=== PATIENT | female | born 1940 | race Caucasian/White ===

== ENCOUNTER 2025-06-26 20:16 | Inpatient (IN) | payer OTHER, SELFPAY ==
[2025-06-26 15:22] VITALS: BP 143/71
[2025-06-26 16:03] LABS: Hematocrit 43.6 % (37.0-47.0); Hemoglobin 14.4 g/dL (12.0-16.0); Mean Corp Hgb Conc. 33.0 g/dL (33.0-37.0); Mean Corpuscular Volume 85.8 fL (81.0-99.0); Nucleated Red Blood Cells % 0 %; Platelet Count 324 10^3/uL (130-400); Red Cell Dist. Width 14.0 % (11.5-14.5)
[2025-06-26 16:19] LABS: ALT (SGPT) 38 U/L (0-35); AST (SGOT) 62 U/L (14-36); Albumin 3.7 g/dl (3.5-5.0); Alkaline Phosphatase 109 U/L (38-126); Blood Urea Nitrogen 15 mg/dl (7-17); Calcium 9.0 mg/dl (8.4-10.2); Carbon Dioxide 25 mmol/L (22-30); Chloride 105 mmol/L (98-107); Glucose 118 mg/dl (70-99); Potassium 3.9 mmol/L (3.5-5.1); Sodium 134 mmol/L (135-145); Total Protein 6.3 g/dl (6.3-8.2); eGFR > 60.00
[2025-06-26 16:25] LABS: COVID-19 Antigen Negative (Negative)
[2025-06-26 17:59] VITALS: BP 125/57
[2025-06-26] MEDS: TYLENOL 1000 MG PO (18:51)
[2025-06-26] MEDS: TAMIFLU 75 MG PO (19:05)
[2025-06-26] MEDS: DUONEB 3 ML INH ×2 (19:05)
[2025-06-26] MEDS: DECADRON 10 MG IV (19:05)
--- NOTE | 2025-06-26 19:20 | ED.GENMED ---
History of Present Illness
General
Chief Complaint: Cold/Flu/URI Symptoms
Source: patient
Exam Limitations: none
Time Seen by Provider: 06/26/25 17:06
History of Present Illness
History of Present Illness:
Note:
CHIEF COMPLAINT(S)
Feeling terrible with flu-like symptoms, wheezing, and difficulty breathing.
HISTORY OF PRESENT ILLNESS
The patient is an 85-year-old female with a history of chronic obstructive pulmonary disease (COPD) presenting with flu-like symptoms. She reports starting to feel unwell recently, with symptoms including wheezing and difficulty breathing. The
patient suspects she may have contracted the illness from her granddaughter over the holidays. She experiences worsened breathing when wearing a mask, which she finds intolerable. The patient denies routine oxygen use at home but mentioned past use
of breathing treatments. She has COPD and previously smoked but has since stopped. The patient did not receive an influenza vaccination this year and lacks a spleen, raising concern for susceptibility to infections. The plan includes administering
breathing treatments and Tamiflu, and possibly arranging an overnight stay with a chest X-ray for further evaluation.
CHRONIC MEDICAL CONDITIONS SIGNIFICANTLY AFFECTING CARE
1. Chronic Obstructive Pulmonary Disease (COPD)
2. Asplenia
SOCIAL HISTORY
Former smoker, quit smoking.
PHYSICAL EXAM
General: Alert, in no acute distress, but reports feeling terrible.
Respiratory: Wheezing, bilateral equal breath sounds, tachypneic.
PROBLEM LIST
Acute:
1. Flu-like symptoms
2. Wheezing
3. Difficulties with mask-wearing during breathing
Chronic:
1. Chronic Obstructive Pulmonary Disease (COPD)
2. Asplenia
PLAN
1. Administer breathing treatments to alleviate wheezing.
2. Prescribe Tamiflu for flu symptoms.
3. Obtain a chest X-ray to assess for possible complications.
4. Arrange for overnight observation to monitor and manage symptoms.
DIFFERENTIAL DIAGNOSIS
The Differential Diagnosis includes, in no particular order and is not limited to:
1. Influenza
2. Acute exacerbation of COPD
3. Pneumonia
4. Bronchitis
5. Respiratory Syncytial Virus (RSV) infection
6. Allergic reaction
7. Asthma
8. Heart failure exacerbation
9. Pulmonary embolism
10. Viral upper respiratory infection
Disposition:
SUMMARY OF ENCOUNTER
The patient, an 85-year-old female with a history of chronic obstructive pulmonary disease (COPD) and asplenia, presented with flu-like symptoms, including cough, shortness of breath, fever, and chills. The emergency department workup indicated mild
leukocytosis with a white blood cell count of 12, and normal hemoglobin and platelet counts. Chemistry panels were normal except for slightly elevated AST and ALT levels. COVID-19 testing returned negative, while influenza testing was positive. The
chest x-ray did not show any focal infiltrates. Given her hypoxia and history of COPD, the patient was treated with dexamethasone, bronchodilators, and oseltamivir (Tamiflu). Her asplenia was considered a contributing factor to her current condition.
ASSESSMENT
The patient is experiencing an acute influenza infection, complicated by her history of COPD and asplenia, contributing to her respiratory symptoms, including shortness of breath and wheezing.
EMERGENCY TREATMENTS ADMINISTERED
The patient received dexamethasone, bronchodilators, and oseltamivir (Tamiflu) for management of her symptoms.
PLAN
To continue treatment for the influenza infection with oseltamivir and manage respiratory symptoms with bronchodilators and dexamethasone. Monitor for any respiratory complications or exacerbations of COPD. Overnight observation was discussed for
ensuring stability given her baseline conditions.
INDEPENDENT REVIEW OF LABS AND INTERPRETATION OF TESTS
- My independent review of CBC indicates mild leukocytosis with a white blood cell count of 12, normal hemoglobin, and normal platelet counts.
- My independent review of liver function tests shows a mild elevation in AST and ALT.
- My independent review of the chest x-ray shows no focal infiltrates.
MEDICATION RECONCILIATION
- Dexamethasone administered.
- Bronchodilators given.
- Oseltamivir (Tamiflu) prescribed for influenza.
MEDICAL DECISION MAKING
1. Number and Complexity of Problems Addressed:
- Chronic conditions affecting care: COPD, asplenia
- Differential diagnosis: Influenza, Acute exacerbation of COPD, Pneumonia, Bronchitis, Respiratory Syncytial Virus (RSV) infection, Allergic reaction, Asthma, Heart failure exacerbation, Pulmonary embolism, Viral upper respiratory infection.
2. Data:
- Category 1:
- My independent interpretation of the chest x-ray shows no focal infiltrates.
3. Risk:
- Prescription medication was prescribed including oseltamivir (Tamiflu).
- Consideration of Admission/Observation: Escalation of care including admission/observation was considered given the complexity and risk of the patients presenting complaint, exam findings, and/or their underlying comorbidities. However, ultimately
I feel the patient is safe for outpatient management with close follow-up. Reasoning: Work-up reassuring, does not reveal any acute life/organ threatening processes, patient�s symptoms well controlled upon reevaluation, reexamination is reassuring,
vitals are stable, patient agreeable with discharge, reliable for follow-up.
DIAGNOSIS
- Influenza (J10.1)
- COPD with acute exacerbation (J44.1)
- Asplenia (D73.0)
Phy Exam
Physical Exam
Physical Exam:
.
Course
Orders/Labs/Results
Orders:
Orders
06/26/25 15:45
COVID-19 Antigen Urgent
Source: Nasal Swab
Complete Blood Count/With Diff Urgent
Comprehensive Metabolic Panel Urgent
INF RAPID [Influenza A+B Rapid Molecular] Urgent
JAY Source: Nasal Swab
Specimen Description:
06/26/25 18:32
Acetaminophen [Tylenol] 1,000 mg .ROUTE .STK-MED ONE
06/26/25 18:41
Dexamethasone Sod Phosphate [Decadron] 10 mg IV NOW STA
Ipratropium/Albuterol Sulfate [Duoneb] 3 ml INH R NOW ONE
Ipratropium/Albuterol Sulfate [Duoneb] 3 ml INH R NOW STA
Oseltamivir Phosphate [Tamiflu] 75 mg PO NOW STA
06/26/25 18:42
CR Chest Portable - 1 View Urgent
Comment:
Reason For Exam: sob, hypoxia
Reason Study Needs to be Portable: Unable to Transport
06/26/25 18:51
Acetaminophen [Tylenol] 1,000 mg PO NOW STA
Abnormal Lab Results
06/26/25
15:45
WBC 12.1 H 10^3/uL
(4.8-10.8)
Abs Immat Gran (auto) 0.1 H 10^3/uL
(0-0.05)
Absolute Neuts (auto) 10.1 H 10^3/uL
(1.4-6.5)
Absolute Lymphs (auto) 0.6 L 10^3/uL
(1.2-3.4)
Absolute Monos (auto) 1.2 H 10^3/uL
(0.1-0.6)
Neutrophils % 83.5 H %
(42.2-75.2)
Lymphocytes % 5.1 L %
(20.5-51.1)
Monocytes % 10.1 H %
(1.7-9.3)
Sodium 134 L mmol/L
(135-145)
Creatinine 0.4 L mg/dL
(0.6-1.0)
Glucose 118 H mg/dl
(70-99)
AST 62 H U/L
(14-36)
ALT 38 H U/L
(0-35)
06/26/25 15:45
06/26/25 15:45
Vital Signs
Initial and Last Documented VS:
Initial Vital Signs
Temp Pulse Resp BP Pulse Ox
101.5 F H 104 20 143/71 92
06/26/25 15:22 06/26/25 15:22 06/26/25 15:22 06/26/25 15:22 06/26/25 15:22
Last Documented Vital Signs
Temp Pulse Resp BP Pulse Ox
101.5 F H 93 20 125/57 94
06/26/25 15:22 06/26/25 19:00 06/26/25 19:00 06/26/25 17:59 06/26/25 19:22
*Pulse Oximetry
SaO2: 94
Nasal Cannula flow liters per minute: 2
Oxygen Mode of Delivery: Room air
Patient hypoxic: yes
*Critical Care Note
Total Time (30-74mins, 75-104mins- exclusive of procedures): Not Applicable
ED Attending Note
-
Portions of this chart may have been created with voice recognition software.� Occasional wrong word or��sound alike� substitutions may have occurred due to the inherent limitations of voice recognition software.
Discharge Plan
Departure
Patient Disposition: Admit
Date of Disposition: 06/26/25
Time of Disposition: 19:26
Admit to: Telemetry
Presentation/result/management discussed w/ accepting MD/DO: Hospitalist
Discharge Problem:
Asthma exacerbation in COPD, Influenza A
Referrals:
SOURAV HANDY [Other]
Interventions
Interventions:
*General Assessment Last Done: 06/26/25 18:00
*Neglect/Abuse Screening Last Done: 06/26/25 15:22
*ED COVID-19 Vaccine History Last Done: 06/26/25 18:00
*ED Influenza Vaccine History Last Done: 06/26/25 18:00
[facility] Fall Risk Assessment Tool Last Done: 06/26/25 18:00
ED- Pulmonary Assessment Last Done: 06/26/25 18:30
Discharge Date and Time
Print Language: MALAY
--- NOTE | 2025-06-26 19:32 | HPS.HSE ---
Family Physician
-
Family Physician: SOURAV HANDY
Chief Complaint
-
Flulike symptoms
History of Present Illness
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
breath and found to be febrile to 101 in the emergency department.
Patient reports being in usual state of health up until this morning. She lives with her daughter. She had no known sick contact. She was feeling very ill. She reports that she started coughing. It was productive. She reports having fevers and
chills. She did also develop shortness of breath. She denies chest pain. She denies any lower extremity swelling. She denies any orthopnea or PND. She could hear herself having audible wheeze. She states last time she felt this sick she had
COVID and was in the hospital.
The emergency department patient was febrile to 1.5, blood pressure was 125/57 with a pulse rate of 97. She is satting 94% on 2 L. She has a white count of 12.1, hemoglobin and platelets were unremarkable. Electrolytes were stable BUN and
creatinine were normal. Glucose was 118. She had mild elevation in AST to 62 and ALT 236.
Chest x-ray is without any acute infiltrates. Influenza test was positive.
Medical History
Past Medical History
Past Medical History: Reports Cancer (Colon cancer with hepatic metastasis), COPD, Hypothyroidism and Other (Asplenia)
Past Surgical History: Reports None, Bowel Resection (2 feet colon resection with anastomosis, hepatic mass resection) and Other (Hernia repair)
Social History
Tobacco: Former Smoker
Alcohol: Occasional
Drug: None
Living: With Family
Family History
Family History: Not pertinent
Allergies / Home Medications
Allergies reflects when Allergies were last updated in [facility].
Home Medications with original date entered in [facility]
Allergy/Medication List:
Allergies
Allergy/AdvReac Type Severity Reaction Status Date / Time
latex Allergy Anaphylaxis Verified 06/26/25 15:27
Advair discus -dose undetermined
Entresto 24-26 mg tablets, take 1 tablet p.o. twice daily
Coreg 3.125 mg tablet, 3.125 mg p.o. twice daily
Levothyroxine 75 mcg tablet, 75 mcg p.o. daily
If medication reconciliation has not been performed, why?: Medication List N/A
If Other, explain: Patient's family to bring in the medication list in the morning.
Review of Systems
-
History Source: Patient
Constitutional: Reports Fever and Chills
EENT: Reports No Symptoms
Respiratory: Reports Cough and Trouble Breathing
Cardiac: Reports No Symptoms
Abdomen/GI: Reports No Symptoms
: Reports No Symptoms
Musculoskeletal: Reports No Symptoms
Skin: Reports No Symptoms
Neurological: Reports No Symptoms
Endocrine: Reports No Symptoms
Hematologic/Lymphatic: Reports No Symptoms
Psych: Reports No Symptoms
Physical Exam
Vital Signs
Vital Signs
Temp Pulse Resp BP Pulse Ox
101.5 F H 93 20 125/57 94
06/26/25 15:22 06/26/25 19:00 06/26/25 19:00 06/26/25 17:59 06/26/25 19:22
Physical Exam
General: Well Developed, Well Nourished and No Apparent Distress
HEENT: NormoCephalic, Moist mucous membranes and Atraumatic
Respiratory: Wheezes, Non Labored Respirations and Decreased Breath Sounds; No Accessory Resp Muscle Use
Cardiac: S1/S2 and Regular Rhythm; No Murmur or Rub
GI: Soft, Non Tender, Non Distended and Normal Bowel Sounds; No Organomegaly
Rectal: Deferred by Provider
Genito-urinary: Deferred by me
Musculoskeletal: No Clubbing, No Cyanosis and No Edema
Skin: No Rash
Neuro: AO x 3 and Nonfocal/grossly intact
Psych: Calm
Laboratory Results
-
06/26/25 15:45
06/26/25 15:45
Laboratory Results
Total Bilirubin 0.7 mg/dl (0.2-1.3) 06/26/25 15:45
AST 62 U/L (14-36) H 06/26/25 15:45
ALT 38 U/L (0-35) H 06/26/25 15:45
Alkaline Phosphatase 109 U/L (38-126) 06/26/25 15:45
Data Reviewed
-
Diagnostic Radiology: Image Personally Visualized and interpreted
Lab Data: Labs Reviewed by me
Old Records: Reviewed
Impression/Plan
-
IMPRESSION:
85-year-old with past medical history significant for COPD not on home O2, history of CHF, hypothyroidism who presents to the emergency department with acute episode of cough shortness of breath fevers and chills and found to have influenza A. She
is hypoxic requiring 2 to 3 L of oxygen at this time. She does not require oxygen and at baseline. She also significantly wheezing and has a productive cough. Her x-ray was without any acute focal infiltrate. Onset of symptoms began within the
last 24 hours.
PLAN:
Influenza A infection with COPD exacerbation
� Admit to med/surg
� Will start Tamiflu 75 mg twice daily
� Solu-Medrol 40 mg every 12
� Will continue DuoNebs RT sees
� Continue DuoNebs as needed every 3 hours
� Cough suppression
� Wean oxygen as tolerated, keep sats greater than 90%
� Monitor for decompensation closely given risk factors.
CHF�no evidence of acute CHF exacerbation
� Continue Entresto
� Continue Coreg (unknown dose of but patient reports taking the minimal dose we will continue with 3.125 twice daily for now)
Hypothyroid
� Continue patient's levothyroxine 75 mcg
DVT prophylaxis�Lovenox subcu
CODE STATUS�DNR
[2025-06-26] MEDS: DUONEB INH (21:09)
[2025-06-26 21:12] VITALS: BP 109/52; BMI 21.6
[2025-06-26] MEDS: ENTRESTO 24 MG/26 MG 1 TAB PO (22:58)
[2025-06-26 23:29] VITALS: BP 107/58
[2025-06-27] MEDS: COREG 3.125 MG PO ×3 (00:13→19:26)
[2025-06-27] MEDS: SOLU-MEDROL PF 40 MG IV ×3 (02:28→17:02)
[2025-06-27 03:18] VITALS: BP 106/53
[2025-06-27 06:00] VITALS: BMI 21.4
[2025-06-27] MEDS: SYNTHROID 75 MCG PO (06:02)
[2025-06-27 07:00] VITALS: BP 112/47
[2025-06-27 07:02] LABS: Hematocrit 44.2 % (37.0-47.0); Hemoglobin 14.5 g/dL (12.0-16.0); Mean Corp Hgb Conc. 32.8 g/dL (33.0-37.0); Mean Corpuscular Volume 87.0 fL (81.0-99.0); Platelet Count 285 10^3/uL (130-400); Red Cell Dist. Width 14.1 % (11.5-14.5)
[2025-06-27 07:22] LABS: Blood Urea Nitrogen 17 mg/dl (7-17); Calcium 9.0 mg/dl (8.4-10.2); Carbon Dioxide 24 mmol/L (22-30); Chloride 105 mmol/L (98-107); Estimated Creatinine Clearance 59 ml/min; Glucose 140 mg/dl (70-99); Potassium 4.1 mmol/L (3.5-5.1); Sodium 136 mmol/L (135-145); eGFR > 60.00
[2025-06-27] MEDS: DUONEB 3 ML INH ×4 (07:25→20:23)
--- NOTE | 2025-06-27 08:02 | W.PN.HOSP.TC ---
Today's Communication/Plan
-
Continue IV steroid.
Resume Advair.
Continue breathing treatment.
Continue Tamiflu
Assessment / Plan
Assessment / Plan
Impression:
This is an 85-year-old female with a past medical history significant for COPD (not on home oxygen), congestive heart failure, hypothyroidism, history of colon cancer status post surgical resection, and functional asplenia. She presents to the
emergency department with cough, fever, and shortness of breath. On arrival, she was febrile to 101�F.
The patient reports being in her usual state of health until morning of admission. She lives with her daughter and denies any known sick contacts. She began feeling very ill, developed a productive cough, fever, chills, and shortness of breath. She
denies chest pain, lower extremity swelling, orthopnea, or paroxysmal nocturnal dyspnea. She noted audible wheezing. She states the last time she felt this sick was during a prior COVID infection requiring hospitalization.
Emergency Department Findings:
Temperature: 101.5�F
Blood Pressure: 125/57 mmHg
Heart Rate: 97 bpm
Oxygen Saturation: 94% on 2 L nasal cannula
Laboratory Results:
WBC: 12.1 K/�L
Hemoglobin and platelets: unremarkable
Electrolytes: stable
BUN and creatinine: normal
Glucose: 118 mg/dL
AST: 62 U/L (mildly elevated)
ALT: 236 U/L (mildly elevated)
Imaging and Tests:
Chest X-ray: no acute infiltrates
Influenza test: positive
Patient admitted to the hospitalist, tested positive for influenza A, started on Tamiflu, IV steroid, admitted for hypoxic respiratory failure secondary to influenza and COPD exacerbation.
Assessment/plan:
Acute hypoxic respiratory failure secondary to Influenza A infection with COPD exacerbation
Admitted to medical/surgical unit
Started on Oseltamivir (Tamiflu) 75 mg PO BID
Solu-Medrol 40 mg IV every 8 hours
Continue DuoNebs per RT protocol and as needed every 3 hours
Cough suppression as needed
Wean oxygen as tolerated; maintain SpO? > 90%, pulse ox on exertion before discharge
Monitor closely for decompensation given high-risk comorbidities
Chronic Congestive Heart Failure (unknown type, no recent echo)
No evidence of acute CHF exacerbation
Continue Entresto
Continue Carvedilol.
Hypothyroidism
Continue Levothyroxine 75 mcg PO daily
DVT Prophylaxis
Enoxaparin (Lovenox) subcutaneous
Code Status
DNR
Diet: Cardiac diet
Total time spent on today's encounter was 55 minutes which included time spent in counseling the patient/family regarding diagnosis and treatment plan as listed above, goals of care, and symptom management. Case was discussed with nursing staff,
specialists, and care coordinators/case management. All labs and imaging personally reviewed by me. Remainder the time spent in detailed review of previous records, lab data, imaging, and other medical provider documentation.
Part of this note was created using voice recognition system. Occasional wrong word or �sound alike� substitutions may have inadvertently occurred due to the inherent limitations of voice recognition software. If noted kindly bring it to my
attention for correction.
Anticipated Discharge: 24 - 48 hours
Subjective/Interval History
-
Date of Service: June 27, 2025
Patient seen and examined at bedside, denies any chest pain , wheezing and shortness of breath Improved, no abdominal pain, no nausea, no vomiting, no diarrhea or constipation.
Objective Data
-
Labs:
Laboratory Results
06/27/25
06:51
WBC 10.5
Hgb 14.5
Hct 44.2
Plt Count 285
Sodium 136
Potassium 4.1
Chloride 105
Carbon Dioxide 24
BUN 17
Creatinine 0.4 L
Glucose 140 H
Calcium 9.0
Vital Signs:
Vital Signs
Temp Pulse Resp BP Pulse Ox
97.9 F 76 16 106/53 95
06/27/25 03:18 06/27/25 07:28 06/27/25 07:28 06/27/25 03:18 06/27/25 03:18
I&O
06/26/25 06/27/25 06/28/25
06:59 06:59 06:59
Intake Total 240 / 240
Balance 240 / 240
Physical Exam
-
General: Well Developed, Well Nourished, No Apparent Distress and Comfortable
HEENT: Normocephalic, Atraumatic, Moist Mucous Membranes, No Ptosis, PERRLA and Nose Appears Normal
Respiratory: Wheezes, Rales, Rhonchi and Non Labored Respirations
Cardiac: Regular Rhythm and S1/S2
Breast: Deferred by me
GI: Soft, Nontender, Nondistended and Normal Bowel Sounds
Genito-urinary: No Costovertebral Tender
Musculoskeletal: No Clubbing, No Cyanosis and No Edema
Skin: Warm
Neuro: Awake, Alert, Oriented, AO x 3 and No Motor Deficits
Psych: Calm
Data Reviewed
-
Diagnostic Radiology: Image personally visualized and interpreted and Report Reviewed by me
CT Scan: Image personally visualized and interpreted and Report Reviewed by me
Ultrasound: Image personally visualized and interpreted and Report Reviewed by me
MRI: Image personally visualized and interpreted and Report Reviewed by me
Medical Tests (Nuc Med, Echo etc): Image personally visualized and interpreted and Report Reviewed by me
Labs: Labs Reviewed by me
Old Records: Reviewed
[2025-06-27] MEDS: TAMIFLU 30 MG PO ×2 (08:11→19:25)
[2025-06-27] MEDS: ENTRESTO 24 MG/26 MG 1 TAB PO ×2 (08:11→19:26)
[2025-06-27] MEDS: ADVAIR HFA 115/21 MCG INHALER 2 PUFF INH ×2 (11:28→20:24)
[2025-06-27 15:24] VITALS: BP 115/62
[2025-06-27 17:06] VITALS: BMI 21.4
[2025-06-27 23:34] VITALS: BP 102/72
[2025-06-28] MEDS: TYLENOL 650 MG PO (00:11)
[2025-06-28] MEDS: SOLU-MEDROL PF 40 MG IV ×3 (02:28→17:30)
[2025-06-28] MEDS: SYNTHROID 75 MCG PO (05:58)
[2025-06-28 06:00] VITALS: BMI 21.2
[2025-06-28] MEDS: DUONEB 3 ML INH ×4 (06:22→18:13)
[2025-06-28 07:05] VITALS: BP 120/69
[2025-06-28] MEDS: ADVAIR HFA 115/21 MCG INHALER 2 PUFF INH ×2 (07:25→18:13)
[2025-06-28] MEDS: ENTRESTO 24 MG/26 MG 1 TAB PO ×2 (08:19→21:20)
[2025-06-28] MEDS: MUCINEX 600 MG PO ×2 (08:19→21:20)
[2025-06-28] MEDS: TAMIFLU 30 MG PO ×2 (08:19→21:19)
[2025-06-28] MEDS: COREG 3.125 MG PO ×2 (08:19→21:19)
--- NOTE | 2025-06-28 10:04 | W.PN.HOSP.TC ---
Today's Communication/Plan
-
Continue IV steroid.
Added antibiotic
Stool for Hemoccult.
Sputum culture
Continue breathing treatment.
Continue Tamiflu
Assessment / Plan
Assessment / Plan
Impression:
This is an 85-year-old female with a past medical history significant for COPD (not on home oxygen), congestive heart failure, hypothyroidism, history of colon cancer status post surgical resection, and functional asplenia. She presents to the
emergency department with cough, fever, and shortness of breath. On arrival, she was febrile to 101�F.
The patient reports being in her usual state of health until morning of admission. She lives with her daughter and denies any known sick contacts. She began feeling very ill, developed a productive cough, fever, chills, and shortness of breath. She
denies chest pain, lower extremity swelling, orthopnea, or paroxysmal nocturnal dyspnea. She noted audible wheezing. She states the last time she felt this sick was during a prior COVID infection requiring hospitalization.
Emergency Department Findings:
Temperature: 101.5�F
Blood Pressure: 125/57 mmHg
Heart Rate: 97 bpm
Oxygen Saturation: 94% on 2 L nasal cannula
Laboratory Results:
WBC: 12.1 K/�L
Hemoglobin and platelets: unremarkable
Electrolytes: stable
BUN and creatinine: normal
Glucose: 118 mg/dL
AST: 62 U/L (mildly elevated)
ALT: 236 U/L (mildly elevated)
Imaging and Tests:
Chest X-ray: no acute infiltrates
Influenza test: positive
Patient admitted to the hospitalist, tested positive for influenza A, started on Tamiflu, IV steroid, admitted for hypoxic respiratory failure secondary to influenza and COPD exacerbation.
Assessment/plan:
Acute hypoxic respiratory failure secondary to Influenza A infection with COPD exacerbation
Admitted to medical/surgical unit
Started on Oseltamivir (Tamiflu) 75 mg PO BID
Solu-Medrol 40 mg IV every 8 hours
Continue DuoNebs per RT protocol and as needed every 3 hours
Cough suppression as needed
Wean oxygen as tolerated; maintain SpO? > 90%, pulse ox on exertion before discharge
Monitor closely for decompensation given high-risk comorbidities
Patient still with significant wheezing and coughing, will repeat chest x-ray and will add antibiotic in form of Rocephina and Doxy.
Chronic Congestive Heart Failure (unknown type, no recent echo)
No evidence of acute CHF exacerbation
Continue Entresto
Continue Carvedilol.
Concern of melena/history of colon cancer
Patient noted dark stool x 1.
Occult blood test pending.
Monitor hemoglobin, which so far stayed stable.
Hypothyroidism
Continue Levothyroxine 75 mcg PO daily
DVT Prophylaxis
Enoxaparin (Lovenox) subcutaneous
Code Status
DNR
Diet: Cardiac diet
Total time spent on today's encounter was 55 minutes which included time spent in counseling the patient/family regarding diagnosis and treatment plan as listed above, goals of care, and symptom management. Case was discussed with nursing staff,
specialists, and care coordinators/case management. All labs and imaging personally reviewed by me. Remainder the time spent in detailed review of previous records, lab data, imaging, and other medical provider documentation.
Part of this note was created using voice recognition system. Occasional wrong word or �sound alike� substitutions may have inadvertently occurred due to the inherent limitations of voice recognition software. If noted kindly bring it to my
attention for correction.
Anticipated Discharge: 24 - 48 hours
Subjective/Interval History
-
Date of Service: June 28, 2025
Patient seen and examined at bedside, denies any chest pain , patient still with significant coughing and wheezing, sputum production, also complained of black stool today, otherwise no abdominal pain, no nausea, no vomiting, no diarrhea or
constipation.
lower extremity edema improved.
Objective Data
-
Labs:
Laboratory Results
06/28/25
06:00
WBC Pending
Hgb Pending
Hct Pending
Plt Count Pending
Sodium Pending
Potassium Pending
Chloride Pending
Carbon Dioxide Pending
BUN Pending
Creatinine Pending
Glucose Pending
Calcium Pending
Vital Signs:
Vital Signs
Temp Pulse Resp BP Pulse Ox
98.8 F 92 16 120/69 91
06/28/25 07:05 06/28/25 08:19 06/28/25 07:27 06/28/25 08:19 06/28/25 07:05
I&O
06/27/25 06/28/25 06/29/25
06:59 06:59 06:59
Intake Total 240 / 240 1200 / 1200
Balance 240 / 240 1200 / 1200
Physical Exam
-
General: Well Developed, Well Nourished, No Apparent Distress and Comfortable
HEENT: Normocephalic, Atraumatic, Moist Mucous Membranes, No Ptosis, PERRLA and Nose Appears Normal
Respiratory: Wheezes, Rales, Rhonchi and Non Labored Respirations
Cardiac: Regular Rhythm and S1/S2
Breast: Deferred by me
GI: Soft, Nontender, Nondistended and Normal Bowel Sounds
Genito-urinary: No Costovertebral Tender
Musculoskeletal: No Clubbing, No Cyanosis and No Edema
Skin: Warm
Neuro: Awake, Alert, Oriented, AO x 3 and No Motor Deficits
Psych: Calm
[2025-06-28] MEDS: VIBRAMYCIN 100 MG PO ×2 (11:10→21:20)
[2025-06-28 12:08] LABS: Hematocrit 45.7 % (37.0-47.0); Hemoglobin 15.3 g/dL (12.0-16.0); Mean Corp Hgb Conc. 33.5 g/dL (33.0-37.0); Mean Corpuscular Volume 87.0 fL (81.0-99.0); Platelet Count 310 10^3/uL (130-400); Red Cell Dist. Width 14.3 % (11.5-14.5)
[2025-06-28] MEDS: ROCEPHIN 1000 MG IV (12:27)
[2025-06-28] MEDS: STERILE WATER FOR INJECTION 10 ML IV (12:27)
[2025-06-28 12:35] LABS: Blood Urea Nitrogen 17 mg/dl (7-17); Calcium 9.2 mg/dl (8.4-10.2); Carbon Dioxide 27 mmol/L (22-30); Chloride 100 mmol/L (98-107); Estimated Creatinine Clearance 59 ml/min; Glucose 108 mg/dl (70-99); Potassium 3.8 mmol/L (3.5-5.1); Sodium 133 mmol/L (135-145); eGFR > 60.00
[2025-06-28 12:45] VITALS: BMI 21.2
[2025-06-28 15:00] VITALS: BP 122/69
[2025-06-28] MEDS: AYR SALINE NASAL GEL 1 APPLIC NASAL (21:18)
[2025-06-28] MEDS: ROBITUSSIN DM 5 ML PO (21:26)
[2025-06-28 23:00] VITALS: BP 115/61
[2025-06-28] MEDS: MELATONIN 10 MG PO (23:30)
[2025-06-29] MEDS: SOLU-MEDROL PF 40 MG IV ×3 (02:23→21:03)
[2025-06-29] MEDS: ROBITUSSIN DM 5 ML PO ×3 (02:37→23:13)
[2025-06-29] MEDS: SYNTHROID 75 MCG PO (05:24)
[2025-06-29 06:00] VITALS: BMI 21.0
[2025-06-29] MEDS: ADVAIR HFA 115/21 MCG INHALER 2 PUFF INH ×2 (07:29→18:11)
[2025-06-29] MEDS: DUONEB 3 ML INH ×4 (07:29→18:11)
[2025-06-29 07:59] VITALS: BP 132/68
[2025-06-29 08:35] LABS: Hematocrit 45.1 % (37.0-47.0); Hemoglobin 15.1 g/dL (12.0-16.0); Mean Corp Hgb Conc. 33.5 g/dL (33.0-37.0); Mean Corpuscular Volume 86.1 fL (81.0-99.0); Platelet Count 288 10^3/uL (130-400); Red Cell Dist. Width 14.3 % (11.5-14.5)
[2025-06-29 08:50] LABS: Blood Urea Nitrogen 16 mg/dl (7-17); Calcium 9.1 mg/dl (8.4-10.2); Carbon Dioxide 28 mmol/L (22-30); Chloride 100 mmol/L (98-107); Estimated Creatinine Clearance 59 ml/min; Glucose 123 mg/dl (70-99); Potassium 3.5 mmol/L (3.5-5.1); Sodium 135 mmol/L (135-145); eGFR > 60.00
[2025-06-29] MEDS: MUCINEX 600 MG PO ×2 (09:05→21:03)
[2025-06-29] MEDS: TAMIFLU 30 MG PO ×2 (09:05→20:56)
[2025-06-29] MEDS: VIBRAMYCIN 100 MG PO ×2 (09:05→20:56)
[2025-06-29] MEDS: ENTRESTO 24 MG/26 MG 1 TAB PO ×2 (09:06→20:57)
[2025-06-29] MEDS: COREG 3.125 MG PO ×2 (09:07→21:02)
[2025-06-29] MEDS: AYR SALINE NASAL GEL 1 APPLIC NASAL ×2 (09:08→21:09)
--- NOTE | 2025-06-29 10:28 | W.PN.HOSP.TC ---
Today's Communication/Plan
-
wean IV steroid.
Cont antibiotic
Continue breathing treatment.
Continue Tamiflu
chest x ray
Assessment / Plan
Assessment / Plan
Impression:
This is an 85-year-old female with a past medical history significant for COPD (not on home oxygen), congestive heart failure, hypothyroidism, history of colon cancer status post surgical resection, and functional asplenia. She presents to the
emergency department with cough, fever, and shortness of breath. On arrival, she was febrile to 101�F.
The patient reports being in her usual state of health until morning of admission. She lives with her daughter and denies any known sick contacts. She began feeling very ill, developed a productive cough, fever, chills, and shortness of breath. She
denies chest pain, lower extremity swelling, orthopnea, or paroxysmal nocturnal dyspnea. She noted audible wheezing. She states the last time she felt this sick was during a prior COVID infection requiring hospitalization.
Emergency Department Findings:
Temperature: 101.5�F
Blood Pressure: 125/57 mmHg
Heart Rate: 97 bpm
Oxygen Saturation: 94% on 2 L nasal cannula
Laboratory Results:
WBC: 12.1 K/�L
Hemoglobin and platelets: unremarkable
Electrolytes: stable
BUN and creatinine: normal
Glucose: 118 mg/dL
AST: 62 U/L (mildly elevated)
ALT: 236 U/L (mildly elevated)
Imaging and Tests:
Chest X-ray: no acute infiltrates
Influenza test: positive
Patient admitted to the hospitalist, tested positive for influenza A, started on Tamiflu, IV steroid, admitted for hypoxic respiratory failure secondary to influenza and COPD exacerbation.
Started on Tamiflu, patient was still coughing with sputum production, started on Rocephin and doxycycline
Assessment/plan:
Acute hypoxic respiratory failure secondary to Influenza A infection with COPD exacerbation
Admitted to medical/surgical unit
Started on Oseltamivir (Tamiflu) 75 mg PO BID
Solu-Medrol 40 mg IV every 8 hours
Continue DuoNebs per RT protocol and as needed every 3 hours
Cough suppression as needed
Wean oxygen as tolerated; maintain SpO? > 90%, pulse ox on exertion before discharge
Monitor closely for decompensation given high-risk comorbidities
Patient still with significant wheezing and coughing, started on Rocephina and Doxy.
will repeat chest x-ray.
Chronic Congestive Heart Failure (unknown type, no recent echo)
No evidence of acute CHF exacerbation
Continue Entresto
Continue Carvedilol.
Concern of melena/history of colon cancer
Patient noted dark stool x 1.
Occult blood test negative
Monitor hemoglobin, which so far stayed stable.
Hypothyroidism
Continue Levothyroxine 75 mcg PO daily
DVT Prophylaxis
Enoxaparin (Lovenox) subcutaneous
Code Status
DNR
Diet: regular diet
Total time spent on today's encounter was 55 minutes which included time spent in counseling the patient/family regarding diagnosis and treatment plan as listed above, goals of care, and symptom management. Case was discussed with nursing staff,
specialists, and care coordinators/case management. All labs and imaging personally reviewed by me. Remainder the time spent in detailed review of previous records, lab data, imaging, and other medical provider documentation.
Part of this note was created using voice recognition system. Occasional wrong word or �sound alike� substitutions may have inadvertently occurred due to the inherent limitations of voice recognition software. If noted kindly bring it to my
attention for correction.
Anticipated Discharge: Within 24 hours
Subjective/Interval History
-
Date of Service: June 29, 2025
Patient seen and examined at bedside, denies any chest pain , shortness of breath Improved, no abdominal pain, no nausea, no vomiting, no diarrhea or constipation.
Wheezing and cough improved.
Objective Data
-
Labs:
Laboratory Results
06/29/25
08:00
WBC 37.9 H
Hgb 15.1
Hct 45.1
Plt Count 288
Sodium 135
Potassium 3.5
Chloride 100
Carbon Dioxide 28
BUN 16
Creatinine 0.5 L
Glucose 123 H
Calcium 9.1
Vital Signs:
Vital Signs
Temp Pulse Resp BP Pulse Ox
98.3 F 73 16 132/68 92
06/29/25 07:59 06/29/25 09:07 06/29/25 07:59 06/29/25 09:07 06/29/25 08:45
I&O
06/28/25 06/29/25 06/30/25
06:59 06:59 06:59
Intake Total 1200 / 1200 780 / 780
Balance 1200 / 1200 780 / 780
Physical Exam
-
General: Well Developed, Well Nourished, No Apparent Distress and Comfortable
HEENT: Normocephalic, Atraumatic, Moist Mucous Membranes, No Ptosis, PERRLA and Nose Appears Normal
Respiratory: Rales, Rhonchi and Non Labored Respirations
Cardiac: Regular Rhythm and S1/S2
Breast: Deferred by me
GI: Soft, Nontender, Nondistended and Normal Bowel Sounds
Genito-urinary: No Costovertebral Tender
Musculoskeletal: No Clubbing, No Cyanosis and No Edema
Skin: Warm
Neuro: Awake, Alert, Oriented, AO x 3 and No Motor Deficits
Psych: Calm
[2025-06-29] MEDS: ROCEPHIN 1000 MG IV (12:09)
[2025-06-29] MEDS: STERILE WATER FOR INJECTION 10 ML IV (12:10)
[2025-06-29] MEDS: ANESTHETIC LOZENGE 1 LOZENGE PO (12:41)
--- NOTE | 2025-06-29 15:28 | CM ---
Initial assessment completed with patient who lives with her daughter and 19 y/o grandson in a 2 story plus basement home with B/B on 2nd and 1/2 bath on 1st, 1 step to enter. [employer] patient was independent in ADL's and ambulation, drives. Uses a
hurry can occasionally at night. No other DME. No in-home services. No HC-POA. No VA benefits. No psychiatric hospitalizations. PCP is Dr. Agata Mccabe in [place]. Pharmacy is [facility] in [place]. Discharge POC: Anticipate home with no needs.
[2025-06-29 15:54] VITALS: BP 116/66
[2025-06-29 23:08] VITALS: BP 124/67
[2025-06-29] MEDS: MELATONIN 10 MG PO (23:12)
[2025-06-30] MEDS: SYNTHROID 75 MCG PO (05:48)
[2025-06-30] MEDS: ROBITUSSIN DM 5 ML PO ×2 (05:49→12:29)
[2025-06-30 06:00] VITALS: BMI 21.3
[2025-06-30] MEDS: DUONEB 3 ML INH ×3 (07:34→15:31)
[2025-06-30] MEDS: ADVAIR HFA 115/21 MCG INHALER 2 PUFF INH (07:35)
[2025-06-30 07:45] VITALS: BP 121/69
[2025-06-30 08:43] LABS: Hematocrit 46.0 % (37.0-47.0); Hemoglobin 15.0 g/dL (12.0-16.0); Mean Corp Hgb Conc. 32.6 g/dL (33.0-37.0); Mean Corpuscular Volume 86.3 fL (81.0-99.0); Platelet Count 280 10^3/uL (130-400); Red Cell Dist. Width 14.2 % (11.5-14.5)
[2025-06-30] MEDS: VIBRAMYCIN 100 MG PO (09:14)
[2025-06-30] MEDS: ENTRESTO 24 MG/26 MG 1 TAB PO (09:14)
[2025-06-30] MEDS: SOLU-MEDROL PF 40 MG IV (09:15)
[2025-06-30] MEDS: TAMIFLU 30 MG PO (09:15)
[2025-06-30] MEDS: COREG 3.125 MG PO (09:15)
[2025-06-30] MEDS: MUCINEX 600 MG PO (09:15)
[2025-06-30 09:16] LABS: Blood Urea Nitrogen 23 mg/dl (7-17); Calcium 9.0 mg/dl (8.4-10.2); Carbon Dioxide 27 mmol/L (22-30); Chloride 100 mmol/L (98-107); Estimated Creatinine Clearance 59 ml/min; Glucose 131 mg/dl (70-99); Potassium 3.5 mmol/L (3.5-5.1); Sodium 134 mmol/L (135-145); eGFR > 60.00
[2025-06-30] MEDS: AYR SALINE NASAL GEL 1 APPLIC NASAL (09:26)
--- NOTE | 2025-06-30 10:48 | W.PN.HOSP.TC ---
Addendum entered and electronically signed by Wes Arevalo MD 06/30/25 12:51:
Sepsis due to influenza A infection/ MRSA pneumonia with organ dysfunction of acute hypoxic respiratory failure
Original Note:
Today's Communication/Plan
-
Ambulatory pulse ox on exertion today and possible discharge today
Cont antibiotic
Continue breathing treatment.
Continue Tamiflu.
Assessment / Plan
Assessment / Plan
Impression:
This is an 85-year-old female with a past medical history significant for COPD (not on home oxygen), congestive heart failure, hypothyroidism, history of colon cancer status post surgical resection, and functional asplenia. She presents to the
emergency department with cough, fever, and shortness of breath. On arrival, she was febrile to 101�F.
The patient reports being in her usual state of health until morning of admission. She lives with her daughter and denies any known sick contacts. She began feeling very ill, developed a productive cough, fever, chills, and shortness of breath. She
denies chest pain, lower extremity swelling, orthopnea, or paroxysmal nocturnal dyspnea. She noted audible wheezing. She states the last time she felt this sick was during a prior COVID infection requiring hospitalization.
Emergency Department Findings:
Temperature: 101.5�F
Blood Pressure: 125/57 mmHg
Heart Rate: 97 bpm
Oxygen Saturation: 94% on 2 L nasal cannula
Laboratory Results:
WBC: 12.1 K/�L
Hemoglobin and platelets: unremarkable
Electrolytes: stable
BUN and creatinine: normal
Glucose: 118 mg/dL
AST: 62 U/L (mildly elevated)
ALT: 236 U/L (mildly elevated)
Imaging and Tests:
Chest X-ray: no acute infiltrates
Influenza test: positive
Patient admitted to the hospitalist, tested positive for influenza A, started on Tamiflu, IV steroid, admitted for hypoxic respiratory failure secondary to influenza and COPD exacerbation.
Started on Tamiflu, patient was still coughing with sputum production, started on Rocephin and doxycycline
. X-ray confirmed pneumonia and sputum culture came back positive for MRSA
Assessment/plan:
Acute hypoxic respiratory failure secondary to Influenza A infection with COPD exacerbation
MRSA pneumonia
Admitted to medical/surgical unit
Started on Oseltamivir (Tamiflu) 75 mg PO BID
Solu-Medrol 40 mg IV every 8 hours
Continue DuoNebs per RT protocol and as needed every 3 hours
Cough suppression as needed
Wean oxygen as tolerated; maintain SpO? > 90%, pulse ox on exertion before discharge
Monitor closely for decompensation given high-risk comorbidities
Patient still with significant wheezing and coughing, started on Rocephina and Doxy.
will repeat chest x-ray : New patchy right upper lobe opacity suspicious for pneumonia/pneumonitis.
Sputum grew MRSA.
Patient will discharged on cefdinir and Doxy
Ambulatory pulse ox on exertion before discharge
Chronic Congestive Heart Failure (unknown type, no recent echo)
No evidence of acute CHF exacerbation
Continue Entresto
Continue Carvedilol.
Concern of melena/history of colon cancer
Patient noted dark stool x 1.
Occult blood test negative
Monitor hemoglobin, which so far stayed stable.
Hypothyroidism
Continue Levothyroxine 75 mcg PO daily
DVT Prophylaxis
Enoxaparin (Lovenox) subcutaneous
Code Status
DNR
Diet: regular diet
Total time spent on today's encounter was 55 minutes which included time spent in counseling the patient/family regarding diagnosis and treatment plan as listed above, goals of care, and symptom management. Case was discussed with nursing staff,
specialists, and care coordinators/case management. All labs and imaging personally reviewed by me. Remainder the time spent in detailed review of previous records, lab data, imaging, and other medical provider documentation.
Part of this note was created using voice recognition system. Occasional wrong word or �sound alike� substitutions may have inadvertently occurred due to the inherent limitations of voice recognition software. If noted kindly bring it to my
attention for correction.
Anticipated Discharge: Today
Subjective/Interval History
-
Date of Service: June 30, 2025
Patient seen and examined at bedside, denies any chest pain , shortness of breath Improved, no abdominal pain, no nausea, no vomiting, no diarrhea or constipation.
Objective Data
-
Labs:
Laboratory Results
06/30/25
08:07
WBC 31.7 H
Hgb 15.0
Hct 46.0
Plt Count 280
Sodium 134 L
Potassium 3.5
Chloride 100
Carbon Dioxide 27
BUN 23 H
Creatinine 0.5 L
Glucose 131 H
Calcium 9.0
Vital Signs:
Vital Signs
Temp Pulse Resp BP Pulse Ox
97.8 F 78 18 121/69 93
06/30/25 07:45 06/30/25 09:15 06/30/25 07:45 06/30/25 09:15 06/30/25 07:45
I&O
06/29/25 06/30/25 07/01/25
06:59 06:59 06:59
Intake Total 780 / 780 380 / 380
Balance 780 / 780 380 / 380
Physical Exam
-
General: Well Developed, Well Nourished, No Apparent Distress and Comfortable
HEENT: Normocephalic, Atraumatic, Moist Mucous Membranes, No Ptosis, PERRLA and Nose Appears Normal
Respiratory: Rales, Rhonchi and Non Labored Respirations
Cardiac: Regular Rhythm and S1/S2
Breast: Deferred by me
GI: Soft, Nontender, Nondistended and Normal Bowel Sounds
Genito-urinary: No Costovertebral Tender
Musculoskeletal: No Clubbing, No Cyanosis and No Edema
Skin: Warm
Neuro: Awake, Alert, Oriented, AO x 3 and No Motor Deficits
Psych: Calm
[2025-06-30 11:38] VITALS: O2SAT 85; O2SAT 90
[2025-06-30] MEDS: STERILE WATER FOR INJECTION 10 ML IV (12:29)
[2025-06-30] MEDS: ROCEPHIN 1000 MG IV (12:29)
--- NOTE | 2025-06-30 12:39 | PN.CDI ---
CDI
- -
CDI:
Physician Documentation Request
Admit Date: 06/26/25 20:[address] Arevalo,
Patient admitted with influenza a infection and MRSA pneumonia.
06/30 PN, 'Acute hypoxic respiratory failure secondary to Influenza A infection ....MRSA pneumonia.'
[facility] is using an adapted version of the 2016 Third International Consensus Definitions for Sepsis and Septic Shock (Sepsis-3) where sepsis is defined as life threatening organ dysfunction caused by a deregulated host response to infection.
Please reference the official [facility] Sepsis Recognition Tool for further information, which can be found on the Intranet under Infection Prevention.
Based on your medical judgment, can you please clarify whether or not the above organ dysfunction is related to or due to sepsis?
-- Sepsis due to influenza A infection/ MRSA pneumonia with organ dysfunction of acute hypoxic respiratory failure
-- Influenza A infection/ MRSA pneumonia only
-- Other (please specify)
Use of terms such as suspected, likely, concern for, or probable (associated with a specific diagnosis that is being evaluated, monitored, or treated as if it exists) are acceptable and can be coded in the inpatient setting when documented at the
time of discharge.
Please use your independent medical judgement in providing your response.
Thank you,
Vania RAY,RN,CCDS
CDI Specialist
Available via tiger text
--- NOTE | 2025-06-30 14:27 | W.PN.UPDATE ---
Update Note
Progress Note Update
Ambulatory Pulse ox on excretion done and patient requires 3 L with Excretion
Diagnosis :
COPD ICD-Code�J44.�9�
patient will requires oxygen on discharge
Trial bronchodilators alone did not help with her hypoxia.
--- NOTE | 2025-06-30 15:09 | W.DCSUMMARY ---
Discharge Summary
Discharge Data
Date of Admission: 06/26/25
Date of Discharge: 06/30/25
Total time spent discharging patient (in min): 40
-
Pending Results: No
Hospital Course
Hospital course
This is an 85-year-old female with a past medical history significant for COPD (not on home oxygen), congestive heart failure, hypothyroidism, history of colon cancer status post surgical resection, and functional asplenia. She presents to the
emergency department with cough, fever, and shortness of breath. On arrival, she was febrile to 101�F.
The patient reports being in her usual state of health until morning of admission. She lives with her daughter and denies any known sick contacts. She began feeling very ill, developed a productive cough, fever, chills, and shortness of breath. She
denies chest pain, lower extremity swelling, orthopnea, or paroxysmal nocturnal dyspnea. She noted audible wheezing. She states the last time she felt this sick was during a prior COVID infection requiring hospitalization.
Emergency Department Findings:
Temperature: 101.5�F
Blood Pressure: 125/57 mmHg
Heart Rate: 97 bpm
Oxygen Saturation: 94% on 2 L nasal cannula
Laboratory Results:
WBC: 12.1 K/�L
Hemoglobin and platelets: unremarkable
Electrolytes: stable
BUN and creatinine: normal
Glucose: 118 mg/dL
AST: 62 U/L (mildly elevated)
ALT: 236 U/L (mildly elevated)
Imaging and Tests:
Chest X-ray: no acute infiltrates
Influenza test: positive
Patient admitted to the hospitalist, tested positive for influenza A, started on Tamiflu, IV steroid, admitted for hypoxic respiratory failure secondary to influenza and COPD exacerbation.
Started on Tamiflu, patient was still coughing with sputum production, started on Rocephin and doxycycline
. X-ray confirmed pneumonia and sputum culture came back positive for MRSA
Patient to be discharged on doxycycline.
Patient qualified for home oxygen.
Prednisone tapering
During hospitalization patient was treated from the following
Acute hypoxic respiratory failure secondary to Influenza A infection with COPD exacerbation
MRSA pneumonia
Admitted to medical/surgical unit
Started on Oseltamivir (Tamiflu) 75 mg PO BID
Solu-Medrol 40 mg IV every 8 hours
Continue DuoNebs per RT protocol and as needed every 3 hours
Cough suppression as needed
Wean oxygen as tolerated; maintain SpO? > 90%, pulse ox on exertion before discharge
Monitor closely for decompensation given high-risk comorbidities
Patient still with significant wheezing and coughing, started on Rocephina and Doxy.
will repeat chest x-ray : New patchy right upper lobe opacity suspicious for pneumonia/pneumonitis.
Sputum grew MRSA.
Patient will discharged on Doxy
Ambulatory pulse ox on exertion before discharge done and patient provide for home oxygen.
Prednisone tapering
Chronic Congestive Heart Failure (unknown type, no recent echo)
No evidence of acute CHF exacerbation
Continue Entresto
Continue Carvedilol.
Concern of melena/history of colon cancer
Patient noted dark stool x 1.
Occult blood test negative
Monitor hemoglobin, which so far stayed stable.
Hypothyroidism
Continue Levothyroxine 75 mcg PO daily
DVT Prophylaxis
Enoxaparin (Lovenox) subcutaneous
Code Status
DNR
Diet: regular diet
Total time spent on today's encounter was 40 minutes which included time spent in counseling the patient/family regarding diagnosis and treatment plan as listed above, goals of care, and symptom management. Case was discussed with nursing staff,
specialists, and care coordinators/case management. All labs and imaging personally reviewed by me. Remainder the time spent in detailed review of previous records, lab data, imaging, and other medical provider documentation.
Anticipated Discharge: Today
Discharge Plan
-
Patient Disposition: Home with Home Care
Discharge Diagnosis/Procedures: Acute hypoxic respiratory failure secondary
Influenza A infection
COPD exacerbation
MRSA pneumonia
Diet: As tolerated and Regular
Activity: As tolerated
Referrals:
PCP [Other] - in one to two weeks
Prescriptions:
New
doxycycline hyclate 100 mg Capsule
100 mg PO Q12 5 Days Qty: 10 0RF
dextromethorphan-guaifenesin 10-100 mg/5 mL Syrup
10 ml PO Q4HPRN PRN (Reason: cough) 10 Days Qty: 1000 0RF
guaifenesin 600 mg Tablet Extended Release 12hr
600 mg PO Q12 10 Days Qty: 20 0RF
oseltamivir 30 mg Capsule
30 mg PO BID 2 Days Qty: 4 0RF
prednisone 10 mg tablet
See Taper PO DAILY Qty: 30 0RF
Taper: Prednisone DC Starting at 40 mg daily
40 mg Daily for 3 Days and 0 Hour
30 mg Daily for 3 Days and 0 Hour
20 mg Daily for 3 Days and 0 Hour
10 mg Daily for 3 Days and 0 Hour
ipratropium-albuterol 0.5 mg-3 mg(2.5 mg base)/3 mL Solution For Nebulization
3 ml inhalation Q6HPRN PRN (Reason: shortness of breath) Qty: 180 0RF
Continued
carvedilol [Coreg] 6.25 mg Tablet
6.25 mg PO BID
levothyroxine [Synthroid] 75 mcg Tablet
75 mcg PO DAILY
sacubitril-valsartan [Entresto] 24-26 mg Tablet
1 tab PO BID
fluticasone propion-salmeterol [Advair Diskus] 250-50 mcg/dose Blister With Device
1 inh INHALATION DAILY
Discharge Orders:
Discharge Patient (As Directed); Ordered 06/30/25
Ordered By: Wes Arevalo
Discharge Date and Time
Print Language: YAKUT
--- NOTE | 2025-06-30 15:18 | CM ---
Addendum entered by Vikki Dumas 06/30/25 15:33:
IMM benefit explained; form dated/timed @ 1528
Addendum entered by Vikki Dumas 06/30/25 15:23:
Notified daughterMichelle, via phone; discharge plan discussed including delivery of Oxygen/Supplies
Vendor will contact daughter to coordinate home delivery of Compressor
Daughter will provide patient transport home
Original Note:
Plan: discharge to home today with home oxygen
Oxygen order, clinicals and demographics faxed to [facility]; portable tank will be delivered to patient's room
[2025-06-30 15:55] VITALS: BP 126/66
== END 2025-06-30 20:12 | disposition home health service (06) | DRG 871 ==
LOC: 2 NORTH 20:16
PROVIDERS: ADMITTING PHYSICIAN Internal Medicine; ATTENDING PHYSICIAN General Practice; EMERGENCY PHYSICIAN Emergency Medicine
DX: A41.9 Sepsis, unspecified organism (principal); J15.212 Pneumonia due to Methicillin resistant Staphylococcus aureus; J96.01 Acute respiratory failure with hypoxia; J44.1 Chronic obstructive pulmonary disease with (acute) exacerbation; J45.901 Unspecified asthma with (acute) exacerbation; Z87.891 Personal history of nicotine dependence; R65.20 Severe sepsis without septic shock; I50.9 Heart failure, unspecified; E03.9 Hypothyroidism, unspecified; Z66 Do not resuscitate; J10.1 Influenza due to other identified influenza virus with other respiratory manifestations
CPT/HCPCS: 71045; 71046; 80048; 80053; 85025; 85027; 87070; 87147; 87186; 87205; 87502; 87811; 94640; 94761; 96374; 99285